=== PATIENT | male | born 2000 | race Caucasian/White ===

== ENCOUNTER 2020-09-20 14:21 | Emergency (ER) | payer OTHER, SELFPAY ==
[2020-09-20 14:22] VITALS: BP 137/94; PULSE 90; RESP 16; TEMP 36.4; O2SAT 100; BMI 26.8
--- NOTE | 2020-09-20 14:41 | ED.DCSUM_ITS ---
History of Present Illness Informant: Patient Onset: Days Narrative: 20-year old male with no past medical history presents with complaints left lower chest/upper abdominal pain x1.5 weeks. He states a week ago he had fever/chills/cough/abdominal pain and had a Covid test that was negative. All symptoms have resolved except his abdominal pain. He indicates the area of the left lower chest/ribs. He feels aching pain when he lies down at night or wakes up in the morning. Radiation. No arm, neck, or jaw discomfort. Sometimes it goes away when he starts eating or drinking. It is not exertional or pleuritic. It is not worse with movement. Denies history of cancer or DVT/PE, recent surger y or travel, hemoptysis, or leg pain or swelling. Denies nausea, vomiting, diarrhea, back pain, or urinary symptoms. <Florencia Addison - Last Filed: 09/20/20 15:11> <Hector Vela - Last Filed: 09/20/20 15:19> Chief Complaint: Abd Pain Past Medical History Past Medical History: None Smoking Status: Former smoker <Florencia Addison - Last Filed: 09/20/20 15:11> <Hector Vela - Last Filed: 09/20/20 15:19> - Allergies and Home Meds Allergies/Adverse Reactions: Allergies No Known Allergies Allergy (Verified 09/20/20 14:25) Primary Care Physician: Michael Rene MD [STAFF PHYSICIAN] - Review of Systems General: Denies: Chills, Fever, Sweats Eyes: Denies: Visual changes - bilaterally, Diplopia ENT: Denies: Rhinorrhea, Sore throat Cardiovascular: Reports: Chest pain. Denies: Palpitations Respiratory: Reports: Cough. Denies: Dyspnea, Sputum, Dyspnea on exertion Gastrointestinal: Denies: Abdominal pain, Nausea, Vomiting, Diarrhea, Melena, Hematochezia Genitourinary: Denies: Dysuria, Hematuria, Frequency Musculoskeletal: Denies: Back pain, Extremity Pain Skin: Denies: Rash, Wounds Neurological: Denies: Headache, Weakness, Numbness <Florencia Addison - Last Filed: 09/20/20 15:11> Physical Exam Vital Signs/Narrative: Vital Signs Temp Pulse Resp BP Pulse Ox 11/27/20 14:22 97.6 F L 90 16 137/94 H 100 Inital Vital Signs reviewed: Yes General: Well nourished, Well developed, No Acute Distress Head: Normocephalic, Atraumatic Eyes: Perrl, EOMI ENT: Moist mucous membranes, No rhinorrhea Neck: Supple, Nontender Cardiovascular: Regular rate, Regular rhythm, No murmurs Respiratory: No distress, CTA bilaterally, Chest nontender, - - No reproducible tenderness over left anterior lower ribs over area of pain. No deformity or crepitus. Abdomen: Soft, Nontender, Nondistended, Normal bowel sounds, - - Abdomen is soft and nontender. Back: Nontender, Normal Inspection. Negative for: CVA tenderness Extremities: No edema Skin: Normal color, No rash Neurological: Alert, Oriented x3, Cranial nerves II-XII grossly intact, Normal Strength, Normal Sensation Psychological: Normal affect, Normal Mood <Florencia Addison - Last Filed: 09/20/20 15:11> Vital Signs/Narrative: Vital Signs Temp Pulse Resp BP Pulse Ox 09/20/20 14:22 97.6 F L 90 16 137/94 H 100 <DaneHector - Last Filed: 09/20/20 15:19> Diagnostic/Tx/Re-eval - Medical Decision Making Patient presents with left lower chest/upper abdominal pain x1.5 weeks. He appears well nontoxic. Vital signs within normal limits. 100% on room air. Heart is regular rate and rhythm with no murmurs. Clear to auscultation. No reproducible tenderness over the left anterior lower ribs. Abdomen is soft and nontender. With his description of aching pain when lying down in bed or waking up that resolves during the day I have no concern for ACS. His heart score is 0. Wells and PERC negative. Chest x-ray interpreted by ED attending and shows normal heart size, no infiltrate or acute process. He likely has pleurisy after his recent infection. Advised to take [id number] pain medication. He was given a work note which states he does not need a negative Covid test to return to work as he tested negative last week and is now asymptomatic and has been fever free over 48 hours. He was agreeable and discharged home in stable condition. <Florencia Addison - Last Filed: 09/20/20 15:11> Chest X-Ray - ED: 1 View, Read by ED Physician, Normal, Heart, Lungs - X-ray was interpreted by me at 10/29/2004., Mediastinum, Bony Structures, No Acute Disease 09/20/20 14:50 Chest 1 View (Portable) [RAD] Stat - Medical Decision Making Patient presents because of persistent left lower chest left upper quadrant abdominal pain. There is a pleuritic component. Work requested a repeat Covid test. Patient's initial Covid test was negative. He has no other symptoms other than this discomfort. Since there is a pleuritic component will obtain a chest x-ray. Suspect he has pleurisy from recent viral infection. Will evaluate/rule out pneumonia. His abdominal exam is normal. Lungs are clear to auscultation. There is good movement of air bilaterally. There is no dermatologic lesions noted. There is no pain to palpation. Heart is regular that murmur, gallop or rub. There is no asymmetry, swelling, discoloration, leg vein distention, palpable cords or tenderness along the distribution of the deep venous system. <Hector Vela - Last Filed: 09/20/20 15:19> ED Disposition <Florencia Addison - Last Filed: 09/20/20 15:11> <Hector Vela - Last Filed: 09/20/20 15:19> - Plan for ED Patient: Disposition: Home or Assisted Living Diagnosis: Chest pain of unknown etiology Instructions: ED Chest Pain NonCardiac Referrals: Michael Rene MD [STAFF PHYSICIAN] -
--- NOTE | 2020-09-20 14:50 | RAD_ITS ---
EXAM DESCRIPTION: PORTABLE AP CHEST CLINICAL HISTORY: 20 years Male, PT WITH LEFT SIDED ABD PAIN. STATES LAST WEEK HAD COVID S/S. STATES TESTED NEGATIVE FOR COVID. STATES ALL S/S GONE EXCEPT THE LEFT SIDED ABD PAIN PT WITH LEFT SIDED ABD PAIN. STATES LAST WEEK HAD COVID S/S. STATES TESTED NEGATIVE FOR COVID. STATES ALL S/S GONE EXCEPT THE LEFT SIDED ABD PAIN COMPARISON: None FINDINGS: The thorax is intact. The heart and mediastinum appear to be within normal limits. The lungs appear to be well areated without evidence of pneumonic consolidation or pleural effusion. RAD/Chest 1 View (Portable) IMPRESSION: Normal portable chest. Electronically Signed: Michael Feliz, at 15:38 EST Tel , Service support ,
== END 2020-09-20 15:28 | disposition home or self-care (01) ==
PROVIDERS: Emergency Provider Physician Assistant
DX: R07.9 Chest pain, unspecified (principal); R10.12 Left upper quadrant pain; R05 Cough; Z87.891 Personal history of nicotine dependence
CPT/HCPCS: 71045; 99282

== ENCOUNTER 2023-05-13 13:22 | Emergency (ER) | payer OTHER, SELFPAY ==
[2023-05-13 13:23] VITALS: BP 128/78; PULSE 88; RESP 18; TEMP 36.6; O2SAT 100; BMI 31.5
[2023-05-13] MEDS: 0.9% Normal Saline 1,000 ML 250 ML IV (13:57)
[2023-05-13 14:01] LABS: Bacteria 0 SEEN /hpf (None Seen); Mucous, Urine 0 SEEN /hpf (<or=2+); Red Blood Cells-Urine 0 SEEN /hpf (0-5); Squamous Epithelial Cells - UA 0 SEEN /hpf (0-5); White Blood Cells 0 SEEN /hpf (0-5)
[2023-05-13 14:02] LABS: Absolute Lymphocyte Count 1.72 X10^3/uL (0.83-4.51); Absolute Neutrophil Count 8.8 X10^3/uL (2.0-7.7); Basophil# 0.11 X10^3/uL; Basophil% 0.9 % (0-1); Color, Urine Yellow (Yellow); Eosinophil# 0.12 X10^3/uL; Glucose, Dipstick Normal (Normal); Hemoglobin 14.3 g/dL (13.0-16.5); Ketone-Dipstick Negative (Negative); Leukocyte Esterase-Dipstick Negative /ul (Negative); Lymphocyte # 1.72 X10^3/ul (0.83-4.51); Lymphocyte % 14.5 % (19-41); Mean Corp Hgb Conc 33.3 g/dL (32-36); Mean Corpuscular Hgb 29.7 pg (27.0-32.0); Mean Corpuscular Volume 89.2 fL (80-94); Mean Platelet Vol. 9.7 fl (6.2-12.0); Monocyte# 1.09 X10^3/uL; Monocyte% 9.2 % (0-10); NRBC Flagged by Analyzer 0 % (0-5); Neutrophil # 8.75 X10^3/uL (2.7-7.7); Neutrophil % 73.8 % (47-70); Nitrite-Dipstick Negative (Negative); Occult Blood-Urine Negative /ul (Negative); Platelet Count 257 K/mm3 (150-450); Protein-Dipstick Negative (Negative); RBC Distribution Width CV 12.4 % (11.6-14.6); Red Blood Count 4.82 M/mm3 (4.6-6.2); Urine Bilirubin Dipstick Negative (Negative); Urine Clarity Clear (Clear); Urine Urobilinogen Normal (Normal); Urine pH 6.5 (5.0 - 8.0); White Blood Count 11.9 K/mm3 (4.4-11.0)
--- NOTE | 2023-05-13 14:08 | CT_ITS ---
INDICATION: Kidney Stone EXAMINATION: CT ABDOMEN AND PELVIS WITHOUT CONTRAST - CT Abdomen And Pelvis W/O Contrast Injection TECHNIQUE: Helically acquired images were obtained of the abdomen and pelvis without oral or IV contrast. A radiation dose optimization technique was used for this scan. IV Contrast dosage and agent: None. Oral contrast: None. RADIATION DOSAGE (If Supplied By Facility): CTDIvol = ( 15.10 ) mGy, DLP = ( 859.13 ) mGycm COMPARISON: No relevant prior comparison study available FINDINGS: LOWER CHEST: There is a predominantly calcified nodule within the right middle lobe suggestive of a granuloma. No cardiomegaly or pericardial effusion. The lack of intravenous contrast limits evaluation of solid visceral organs. LIVER: Homogeneous. No focal mass. GALLBLADDER AND BILIARY TREE: No calcified gallstones. No gallbladder distension or wall edema. No intra- or extrahepatic biliary ductal dilation. PANCREAS: No focal cystic or solid mass. SPLEEN: There are scattered splenic granulomas. ADRENAL GLANDS: No nodules. KIDNEYS AND URETERS: Normal renal size and position. No hydronephrosis. PERITONEUM: No ascites or free air. No other fluid collection. BOWEL: No evidence of acute appendicitis. No stomach or bowel distension. No there are diverticula arising from the colon. There is circumferential wall thickening of the mid descending colon associated with adjacent stranding consistent with acute diverticulitis. LYMPH NODES: No enlarged mesenteric or retroperitoneal lymph nodes. VESSELS: Aorta is non-dilated. URINARY BLADDER: Unremarkable. REPRODUCTIVE ORGANS: No pelvic masses. ABDOMINAL WALL: No discrete abdominal or pelvic wall hernia. BONES: No lytic or blastic abnormality. CT/Abdomen/Pelvis without Cont IMPRESSION: Focal diverticulitis of the descending colon. Evidence of prior granulomatous disease. Electronically Signed: Dee Dee Ross MD at 14:29 EDT ,
[2023-05-13 14:18] LABS: Anion Gap 7 (5-15); BUN 11 mg/dL (7-18); Calcium,Total 9.1 mg/dL (8.5-10.1); Chloride 106 mmol/L (98-107); Creatinine, Serum 0.74 mg/dL (0.70-1.30); EST Glomerular Filtration Rate 139 mL/min (>60); Est Glom Filt Rate - Afr Amer 169 mL/min (>60); Glucose 93 mg/dL (74-106); Potassium 3.7 mmol/L (3.5-5.1); Sodium Level 139 mmol/L (136-145)
--- NOTE | 2023-05-13 14:20 | EX.ED.DYSGE1 ---
HPI History of Present Illness Chief Complaint: Abd Pain Informant: patient Narrative Narrative: Referred here from urgent care for evaluation. Yesterday morning pain left back rating to his groin. Went away. Today symptoms return did not go away. No urinary symptoms. Normal bowel movements. No nausea or vomiting. No fevers or chills. Saw urgent care sent here for concerns for diverticulitis. No history of kidney stones. Took ibuprofen 800 mg around 10:30 AM. Pain is currently a 5. Prior similar symptoms: No PFSH PFSH Medical History No acute medical problems Home Medications hydrocodone-acetaminophen 5-325mg 5mg-325mg 1 tab PO Q4H PRN PRN Pain ##20 06/08/14 [Rx Last Taken Unknown] amoxicillin 875 mg-potassium clavulanate 125 mg tablet 875 mg (0.875 x 875-125 mg) PO Q12H #20 TABLETS 05/13/23 [Rx Last Taken Unknown] Allergy/AdvReac Type Severity Reaction Status Date / Time No Known Allergies Allergy Verified 05/13/23 13:23 Social History Smoking Status: Never smoker ROS ROS ED Constitutional Constitutional ED: Denies chills, fever(s) or sweats Eyes Eyes: Denies change in vision ENT ENT ED: Denies dysphagia or sore throat Cardiovascular Cardiovascular: Denies chest pain, leg edema, palpitations or racing heartbeat Respiratory/Chest Respiratory/Chest: Denies cough, dyspnea or dyspnea on exertion Gastrointestinal Gastrointestinal: Reports abdominal pain; Denies diarrhea, nausea or vomiting Genitourinary Genitourinary ED: Denies dysuria, hematuria or urinary frequency Musculoskeletal Musculoskeletal: Reports back pain; Denies extremity pain or neck pain Integumentary Denies rash or wounds Neurologic Neurologic: Denies headache(s), paresthesias or weakness EXAM Physical Exam Const Vital Signs: 05/13/23 13:23 05/13/23 15:11 Temperature 97.8 F Temperature Source Temporal Pulse Rate 88 Respiratory Rate 18 17 Blood Pressure 128/78 H 117/76 Blood Pressure Mean 94 Pulse Ox 100 Oxygen Delivery Method Room Air Positive well nourished and well developed General Appearance ED: well developed and NAD HEENT Reports moist mucous membranes normocephalic and atraumatic Eyes PERRL, EOMs intact bilaterally and conjunctivae normal General Eye ED: Yes normal appearance of both eyes Neck no lymphadenopathy and supple General: Negative for tenderness Chest Wall Chest: Negative for tenderness Resp normal respiratory effort and normal air movement Effort and Inspection: symmetric chest movement; Negative for respiratory distress Cardio regular rate, regular rhythm and no murmurs Peripheral Pulses: pulses 2+ throughout GI normal to inspection, nondistended, normoactive bowel sounds and non-tender GI Narrative: Castillo's McBurney's tenderness. No reproducible left lower quadrant pain. Palpation: Negative for guarding or rebound tenderness present Back/Spine no CVA tenderness and no thoracic nor lumbar tenderness Extremity normal to inspection General Extremety ED: Negative for edema or tenderness General Extremity: Negative for edema Neuro oriented x3 and no sensory deficits noted Sensorium / Orientation: awake and alert Skin no rashes or lesions noted and no wounds MDM MDM MDM Narrative Medical decision making narrative: Interventions / MDM: Differential diagnosis: Kidney stone, colitis, Diagnosis considered but do not suspect: Shingles, however no rash My EKG interpretation: N/A Imaging independently reviewed and interpreted by myself: CT abdomen pelvis: Descending colon colitis. No kidney stones. External documents reviewed: N/A Test considered but not ordered:N/A ED course: Patient declines any medications currently. History recurrent symptoms rating to his groin region. Work-up initiated for potential kidney stones. Also had pain in left lower quadrant. Labs stable slight leukocytosis 11.9. Urine negative for infection. CT scan positive for mid descending colitis. He states no family history of Crohn's he also colitis this is localized this time. He states this is a possibility. He started antibiotics, please refer to GI for outpatient testing. Discussed using Tylenol at this time for pain control. Return precautions. All questions were answered. Re-evaluation: stable Disposition discussed with patient/family/significant other: Patient Case discussed with consulting clinician: N/A This note was generated with [employer] dictation software. It may contain incorrect words, spelling, and punctuation that were not noted in checking the note before signing. Lab Data Attestation: I reviewed the patient's lab results. Labs: Laboratory Results - last 24 hr 05/13/23 13:55 WBC 11.9 H RBC 4.82 Hgb 14.3 Hct 43.0 MCV 89.2 MCH 29.7 MCHC 33.3 RDW Std Deviation 41.0 RDW Coeff of Augustina 12.4 Plt Count 257 MPV 9.7 Immature Gran % (Auto) 0.600 Neut % (Auto) 73.8 H Lymph % (Auto) 14.5 L [place] % (Auto) 9.2 Eos % (Auto) 1.0 Baso % (Auto) 0.9 Absolute Neuts (auto) 8.8 H Absolute Lymphs (auto) 1.72 Nucleated RBC % 0 Sodium 139 Potassium 3.7 Chloride 106 Carbon Dioxide 26.0 Anion Gap 7 BUN 11 Creatinine 0.74 Estim Creat Clear Calc 160.30 Est GFR (MDRD) Af Amer 169 Est GFR (MDRD) Non-Af 139 BUN/Creatinine Ratio 15.0 Glucose 93 Calcium 9.1 Urine Color Yellow Urine Clarity Clear Urine pH 6.5 Ur Specific [place] 1.010 Urine Protein Negative Urine Glucose (UA) Normal Urine Ketones Negative Urine Occult Blood Negative Urine Nitrite Negative Urine Bilirubin Negative Urine Urobilinogen Normal Ur Leukocyte Esterase Negative Urine RBC 0 SEEN Urine WBC 0 SEEN Ur Squamous Epith Cells 0 SEEN Urine Bacteria 0 SEEN Urine Mucus 0 SEEN Radiography Diagnostic Testing: Clinical Impression(s) from Imaging Studies Abdomen/Pelvis CT 05/13/23 14:08 IMPRESSION: Focal diverticulitis of the descending colon. Evidence of prior granulomatous disease. Electronically Signed: Dee Dee Ross MD at 14:29 EDT , Discharge Plan Triage Chief Complaint: Abd Pain ED Provider: Paulino Montgomery Dx/Rx/DC Orders Clinical Impression: Abdominal pain, LLQ, Diverticulitis Instructions: Diverticulitis Dc Prescriptions: New amoxicillin-pot clavulanate [amoxicillin-pot clavulanate] 875-125 mg tablet 875 mg PO Q12H Qty: 20 0RF No Action hydrocodone-acetaminophen 1 TABLET tablet 1 tab PO Q4H PRN PRN (Reason: Pain) Qty: 20 0RF Hold Instructions: Pt has been DC'd Stand Alone Forms: ED Work / School Excuse Primary Care Provider: Michael Rene Referrals: Michael Rene MD [Primary Care Provider] - Friend,DO Jose [Med Staff - Active Staff] - 1-2 Weeks Activity Restrictions/Additional Instructions: Acute diverticulitis on mid descending colon. You state no family history of Crohn's disease or ulcerative colitis. Take antibiotic as prescribed. Follow-up with GI for further testing as an outpatient. Use Tylenol 1 g every 6 hours for now for pain control. Return if worsening symptoms. Disposition Disposition: Home, Self Care Discharge Date/Time: 05/13/23 15:15
[2023-05-13 15:11] VITALS: BP 117/76; RESP 17
[2023-05-13] MEDS: Amox/Clavulanate 875 MG Tablet PO (15:13)
== END 2023-05-13 15:15 | disposition home or self-care (01) ==
PROVIDERS: Emergency Provider Emergency Medicine; PCP Pediatrics; Visit Provider Emergency Medicine
DX: K57.32 Diverticulitis of large intestine without perforation or abscess without bleeding (principal); R10.32 Left lower quadrant pain
CPT/HCPCS: 74176; 80048; 81001; 85025; 96360; 99284; J7030; A4216